=== PATIENT | female | born 1965 | race Caucasian/White ===

== ENCOUNTER 2019-08-27 08:23 | Emergency (ER) | payer MEDICARE, MEDICAID ==
[~2019-08-27] VITALS: Ht 160 cm; Wt 63.0 kg
[~2019-08-27 08:23] MED LIST: ALBU2.5V13 IH; ALPR1TAB2 PO; ASPI-986 PO; ATOR10TA PO; CITA20TA19 PO; NITR0.4T49 SL; OMEP20CA5 PO
[2019-08-27 09:19] LABS: CLARITY URINE CLEAR (CLEAR); COLOR URINE YELLOW (YELLOW); KETONES URINE NEGATIVE (NEGATIVE); LEUKOCYTE ESTERASE URINE 1+ (NEGATIVE); NITRITE URINE NEGATIVE (NEGATIVE); OCCULT BLOOD URINE NEGATIVE (NEGATIVE); PH URINE 5.5 (4.5-8.0); PROTEIN URINE NEGATIVE (NEGATIVE); SPECIFIC GRAVITY URINE 1.012 (1.005-1.030); UROBILINOGEN URINE 0.2 E.U./dL (0.2-1.0)
[2019-08-27 10:03] VITALS: BP 98/72
== END 2019-08-27 10:05 | disposition home or self-care (01) ==
LOC: ER 08:23
DX: N39.0 Urinary tract infection, site not specified (principal); R11.0 Nausea; R30.0 Dysuria; F41.9 Anxiety disorder, unspecified; E78.00 Pure hypercholesterolemia, unspecified; I10 Essential (primary) hypertension; Z98.890 Other specified postprocedural states; Z79.82 Long term (current) use of aspirin; Z79.899 Other long term (current) drug therapy
CPT/HCPCS: 81003; 81025; 99283

== ENCOUNTER 2019-10-01 20:11 | Inpatient (IN) | payer MEDICARE, MEDICAID ==
[~2019-10-01] VITALS: Ht 167.6 cm; Wt 60.8 kg
[2019-10-01] MEDS ORDERED: ONDANSETRON HCL 4MG/2ML INJ IV STA (20:55)
[2019-10-01] MEDS ORDERED: FAMOTIDINE 20MG/2ML VIAL IV STA (20:55)
[2019-10-01] MEDS ORDERED: MORPHINE SULFATE 4 MG/ML CPJ (NOT FOR IM USE) IV STA (20:55)
[2019-10-01] MEDS ORDERED: SODIUM CHLORIDE 0.9% 1,000 ML IV ONE (20:55)
[2019-10-01 21:18] LABS: HEMATOCRIT. 43.8 % (36.0-48.0); HEMOGLOBIN. 14.7 g/dL (12.0-16.0); MEAN CORPUSCULAR HEMOGLOBIN 30.2 pg (28.0-32.0); MEAN PLATELET VOLUME 9.2 fl (7.4-10.4); PLATELET 176 x1000/uL (130-400); RED BLOOD CELL COUNT 4.87 mill/uL (4.2-5.4); RED CELL DISTRIBUTION WIDTH 13.9 % (11.6-14.6)
[2019-10-01 21:25] LABS: CHLORIDE 109 mEq/L (98-107)
[2019-10-01 21:26] LABS: PROTHROMBIN TIME 10.4 sec (9.6-11.0)
[2019-10-01 21:29] LABS: ETHANOL BLOOD < 10 mg/dL
[2019-10-01 22:07] LABS: PLATELET ESTIMATE NORMAL
[2019-10-01 22:12] LABS: CLARITY URINE CLEAR (CLEAR); COLOR URINE YELLOW (YELLOW); KETONES URINE TRACE (NEGATIVE); LEUKOCYTE ESTERASE URINE NEGATIVE (NEGATIVE); NITRITE URINE NEGATIVE (NEGATIVE); OCCULT BLOOD URINE NEGATIVE (NEGATIVE); PROTEIN URINE TRACE (NEGATIVE); SPECIFIC GRAVITY URINE 1.029 (1.005-1.030); UROBILINOGEN URINE 0.2 E.U./dL (0.2-1.0)
[2019-10-01 22:23] LABS: *AMPHETAMINES SCREEN URINE NEGATIVE (NEGATIVE); *BARBITURATES SCREEN URINE NEGATIVE (NEGATIVE); *BENZODIAZEPINES SCREEN URINE NEGATIVE (NEGATIVE); *COCAINE SCREEN URINE NEGATIVE (NEGATIVE)
[2019-10-01 22:24] LABS: CANNABINOID URINE SCREEN PRESUMTIVE POSITIVE (NEGATIVE); METHADONE URINE SCREEN NEGATIVE (NEGATIVE); OPIATES URINE SCREEN PRESUMTIVE POSITIVE (NEGATIVE); PHENCYCLIDINE URINE SCREEN NEGATIVE (NEGATIVE)
[2019-10-01] MEDS ORDERED: IOHEXOL-300 100 ML BOTTLE ONE (23:24)
[2019-10-02 03:00] VITALS: BP 131/77
[2019-10-02] MEDS ORDERED: HYDROCODONE/ACETAMINOPHEN 5/325MG TABLET PO PRN (03:00)
[2019-10-02] MEDS ORDERED: MAGNESIUM/ALUMINUM HYDROXIDE/SIMETHICONE 30ML UDC PO PRN (03:00)
[2019-10-02] MEDS ORDERED: CLONIDINE 0.1MG TABLET PO PRN (03:00)
[2019-10-02] MEDS ORDERED: ONDANSETRON HCL 4MG/2ML INJ IV PRN (03:00)
[2019-10-02] MEDS ORDERED: ACETAMINOPHEN 325MG TABLET PO PRN (03:00)
[2019-10-02] MEDS ORDERED: LORAZEPAM 0.5MG TABLET PO PRN (03:00)
[2019-10-02] MEDS ORDERED: MORPHINE SULFATE 2 MG/ML CPJ (NOT FOR IM USE) IV PRN (03:00)
[2019-10-02] MEDS ORDERED: BUSP10TA3 PO (03:41)
[2019-10-02] MEDS ORDERED: ASPI-1393 PO (03:41)
[2019-10-02] MEDS ORDERED: PANTOPRAZOLE SODIUM 40 MG/VIAL IV SCH (04:00)
[2019-10-02] MEDS ORDERED: ENOXAPARIN 40MG/0.4ML SYR SUBCUT SCH (04:00)
[2019-10-02 08:00] VITALS: BP 117/73
[2019-10-02 08:51] LABS: CREATINE KINASE 45 IU/L (26-192)
[2019-10-02 08:52] LABS: CREATINE KINASE MB FRACTION < 1.0 ng/mL (0.5-3.6)
[2019-10-02] MEDS ORDERED: AMLODIPINE 10MG TABLET PO SCH (09:00)
[2019-10-02] MEDS ORDERED: ASPIRIN 81MG EC TABLET PO SCH (09:00)
[2019-10-02 11:46] VITALS: BP 88/77
[2019-10-02 14:18] VITALS: BP 111/73
[2019-10-02 15:16] LABS: CREATINE KINASE 50 IU/L (26-192)
[2019-10-02 15:17] LABS: CREATINE KINASE MB FRACTION < 1.0 ng/mL (0.5-3.6)
[2019-10-02] MEDS ORDERED: ATORVASTATIN CALCIUM 20MG TABLET PO SCH (21:00)
== END 2019-10-02 15:27 | disposition home or self-care (01) | DRG 392 ==
LOC: ER 20:19 → 7WST 23:29 → ENRESERV 10-02 01:37
PROVIDERS: ADMIT Hospitalist; ATTEND Hospitalist
DX: K52.9 Noninfective gastroenteritis and colitis, unspecified (principal); R07.9 Chest pain, unspecified; J44.9 Chronic obstructive pulmonary disease, unspecified; I50.9 Heart failure, unspecified; I25.10 Atherosclerotic heart disease of native coronary artery without angina pectoris; I11.0 Hypertensive heart disease with heart failure; F17.200 Nicotine dependence, unspecified, uncomplicated; F19.10 Other psychoactive substance abuse, uncomplicated; I25.2 Old myocardial infarction; Z79.899 Other long term (current) drug therapy; Z79.82 Long term (current) use of aspirin; Z98.891 History of uterine scar from previous surgery
CPT/HCPCS: 36415; 71045; 74177; 80305; 80320; 81003; 82550; 82553; 83605; 84484; 93005; 93306; 93970; 99285; C9113; J1650; J2270; J2405; J3490; J7030; Q9967; G0480

== ENCOUNTER 2020-09-17 07:21 | Emergency (ER) | payer MEDICARE, MEDICAID ==
[~2020-09-17] VITALS: Ht 167.6 cm; Wt 73.0 kg
[~2020-09-17 07:21] MED LIST changes: -ALPR1TAB2 PO; +ASPI-1497 PO; -ASPI-986 PO; +BUSP10TA3 PO; -NITR0.4T49 SL; +OMEP20CA14 PO; -OMEP20CA5 PO
[2020-09-17 07:22] VITALS: BP 160/100
== END 2020-09-17 08:21 | disposition left against medical advice (07) ==
LOC: ER 07:36
DX: R06.02 Shortness of breath (principal); E78.00 Pure hypercholesterolemia, unspecified; I10 Essential (primary) hypertension; Z53.21 Procedure and treatment not carried out due to patient leaving prior to being seen by health care provider; Z79.82 Long term (current) use of aspirin
CPT/HCPCS: 71045; 93005; 99283